=== PATIENT | male | born 1955 | race Caucasian/White ===

== ENCOUNTER 2016-09-21 08:00 | Outpatient (CLI) | payer OTHER ==
--- NOTE | 2016-09-21 11:07 | DIAGNOSTIC IMAGING REPORT ---
PROCEDURE: MR BRAIN W/WO CONTRAST INDICATION: HEADACHES;VISION CHANGES , initial encounter TECHNIQUE: Noncontrast T1 sagittal and T2 coronal images of the brain. T2, FLAIR, gradient and diffusion axial images with ADC map. Pregadolinium thin-cut T1 sagittal and coronal images of the pituitary fossa. Following 20 ml of intravenous gadolinium, thin-cut T1 sagittal and coronal images of the pituitary fossa were obtained followed by FAT-SAT T1 axial images of the brain. COMPARISON: Brain MRI of 08/13/2011 FINDINGS: Sulci and ventricular system are normal. There are a few punctate foci of abnormal increased T2 signal of the white matter on the T2 FLAIR sequence with a single new left frontal lobe lesion.. No change in the 5 mm right cerebellar hemisphere lesion demonstrating decreased signal, more prominent on the grade echo sequence consistent with hemosiderin deposition. No evidence of acute CVA, hemorrhage, mass or abnormal enhancement. Normal vascular flow voids. Orbits are unremarkable. Mastoids and sinuses are clear. IMPRESSION: 1. Minor white matter changes suggestive of chronic small vessel disease (atherosclerosis, vasculitis, diabetes) with a single new left frontal punctate lesion. Remote trauma is also a consideration. 2. Stable right cerebral hemisphere low signal intensity lesion consistent with a hemosiderin and old hemorrhage. This may be the result of old trauma or vascular malformation.
[2016-10-01] MEDS ORDERED: FISH OIL1000 M1 (14:10)
[2016-10-01] MEDS ORDERED: DOXYCYCLINE100 MG PO (14:10)
[2016-10-05] MEDS ORDERED: HYCET1 ML PO (07:55)
== END 2016-09-21 23:00 ==
LOC: MRI SRH 08:00
DX: R51 Headache (principal); H53.9 Unspecified visual disturbance; G93.9 Disorder of brain, unspecified